=== PATIENT | male | born 1960 | race Caucasian/White ===

== ENCOUNTER 2021-06-13 08:14 | Inpatient (IN) | payer OTHER ==
[~2021-06-13] VITALS: Ht 193 cm; Wt 96.0 kg
[2021-06-13] VITALS (8 sets, daily range): BP systolic 106–131; BP diastolic 49–72
[2021-06-13] MEDS ORDERED: ACETAMINOPHEN 325 MG TAB PO SCH ×2 (09:30→14:30)
[2021-06-13 09:55] LABS: HEMATOCRIT 34.3 % (42-54); MEAN CORPUSCULAR HEMOGLOBIN 32.3 pg (27.0-33.0); MEAN CORPUSCULAR HGB CONC 33.2 g/dL (32.0-36.0); MEAN CORPUSCULAR VOLUME 97.2 fL (79-99); PLATELET COUNT (AUTO) 323 K/uL (130-400); RED BLOOD CELL COUNT(AUTO) 3.53 MIL/uL (4.50-6.20); RED CELL DISTRIBUTION WIDTH 18.6 % (11.0-15.5); WHITE BLOOD COUNT (AUTO) 12.7 K/uL (4.8-10.8)
[2021-06-13 10:04] LABS: APPEARANCE,URINE CLOUDY (CLEAR); BILIRUBIN,URINE NEGATIVE (NEGATIVE); COLOR,URINE YELLOW (YELLOW); GLUCOSE, URINE (UA) NEGATIVE (NEGATIVE); KETONES,URINE 5 mg/dL (NEGATIVE); LEUKOCYTE ESTERASE ,URINE LARGE (NEGATIVE); NITRATE,URINE POSITIVE (NEGATIVE); OCCULT BLOOD,URINE MODERATE (NEGATIVE); PH,URINE 5.5 (5.0-8.0); PROTEIN,URINE 30 mg/dL (NEGATIVE)
[2021-06-13 10:25] LABS: CREATININE 1.4 mg/dL (0.5-1.5); POTASSIUM 3.7 mmol/L (3.5-5.1)
[2021-06-13 10:29] LABS: ALBUMIN 3.9 g/dL (3.5-5.0); BILIRUBIN,TOTAL 0.9 mg/dL (0.2-1.0); TOTAL PROTEIN, SERUM 7.8 g/dL (6.0-8.3)
[2021-06-13 10:33] LABS: BACTERIA,URINE Moderate /HPF (None Seen); WBC,URINE 26-50 /HPF (0-1)
[2021-06-13 10:34] LABS: SQUAMOUS EPITHELIAL CELL,UR 0-2 /HPF (0-2)
[2021-06-13 10:51] LABS: LYMPHOCYTES % (MANUAL) 4 % (22-44); MAN.DIFF COMMENT-IMPRESSION MANUAL DIFFERENTIAL; MONOCYTES % (MANUAL) 18 % (2-9); PLATELET MORPHOLOGY COMMENT ADEQUATE; SEGMENTED NEUTROPHILS % 78 % (40-70)
[2021-06-13] MEDS ORDERED: CEFTRIAXONE 1G VIAL IVP ONE (13:30)
[2021-06-13] MEDS ORDERED: ACETAMINOPHEN 650 MG SUPPOSITORY RC PRN (15:30)
[2021-06-13] MEDS ORDERED: MORPHINE 2 MG SYG IVP PRN (15:30)
[2021-06-13] MEDS: LACTATED RINGERS 1000ML 1,000 ML IV SCH ×2 (15:30→23:30)
[2021-06-13] MEDS ORDERED: ONDANSETRON 4MG INJ IVP PRN (15:30)
[2021-06-13] MEDS: ZOSYN 3.375GM +NS 50ML IV SCH (15:30)
[2021-06-13] MEDS ORDERED: CLONIDINE HCL 0.1 MG TABLET PO PRN (15:30)
[2021-06-13] MEDS ORDERED: LACTULOSE 20 GM/30 ML UDCUP PO PRN (15:30)
[2021-06-13] MEDS ORDERED: LACTATED RINGERS 1000ML 1,000 ML IV ONE (15:30)
[2021-06-13 16:14] LABS: CREATINE KINASE, TOTAL 161 U/L (21-232); MYOGLOBIN 41 ng/mL (10-92); TROPONIN I < 0.04 ng/mL (0.00-0.06)
[2021-06-13] MEDS ORDERED: IMAT400T8 PO (18:43)
[2021-06-13] MEDS ORDERED: LISI20TA24 PO (18:43)
[2021-06-13] MEDS ORDERED: AMIO200T6 PO (18:44)
[2021-06-13] MEDS ORDERED: ATOR10 PO (18:45)
[2021-06-13] MEDS ORDERED: APIX5TAB PO (18:45)
[2021-06-13] MEDS ORDERED: TAMS-1 PO (18:45)
[2021-06-13] MEDS ORDERED: FINA5TAB41 PO (18:46)
[2021-06-13] MEDS ORDERED: VIT1CAPS47 PO (18:47)
[2021-06-13 22:34] LABS: CREATINE KINASE, TOTAL 146 U/L (21-232); MYOGLOBIN 38 ng/mL (10-92); TROPONIN I < 0.04 ng/mL (0.00-0.06)
[2021-06-13] MEDS: PHARMACY COMMUNICATION MISC SCH (23:00)
[2021-06-14] VITALS (7 sets, daily range): BP systolic 104–123; BP diastolic 53–74
[2021-06-14] MEDS: ZOSYN 3.375GM +NS 50ML IV SCH ×2 (00:15→10:06)
[2021-06-14] MEDS: PHARMACY COMMUNICATION MISC SCH ×12 (01:00→21:58)
[2021-06-14] MEDS: ACETAMINOPHEN 325 MG TAB PO PRN ×2 (01:19→21:01)
[2021-06-14] MEDS: LACTATED RINGERS 1000ML 1,000 ML IV SCH ×3 (02:50→23:12)
[2021-06-14 03:46] LABS: BASOPHILS % (AUTO) 0.6 % (0.0-5.0); EOSINOPHILS % (AUTO) 0.2 % (0.0-8.0); HEMATOCRIT 28.4 % (42-54); LYMPHOCYTES % (AUTO) 10.2 % (21.0-51.0); MEAN CORPUSCULAR HGB CONC 33.5 g/dL (32.0-36.0); MEAN CORPUSCULAR VOLUME 95.6 fL (79-99); MONOCYTES % (AUTO) 19.2 % (3.0-13.0); NEUTROPHILS % (AUTO) 69.5 % (40.0-77.0); PLATELET COUNT (AUTO) 248 K/uL (130-400); RED BLOOD CELL COUNT(AUTO) 2.97 MIL/uL (4.50-6.20); RED CELL DISTRIBUTION WIDTH 18.5 % (11.0-15.5); WHITE BLOOD COUNT (AUTO) 9.8 K/uL (4.8-10.8)
[2021-06-14 04:12] LABS: CARBON DIOXIDE 28 mmol/L (21-32); CHLORIDE 105 mmol/L (101-111); CREATINE KINASE, TOTAL 134 U/L (21-232); CREATININE 1.2 mg/dL (0.5-1.5); GLOMERULAR FILTR. RATE CALC 65 mL/min (>60); GLUCOSE,RANDOM 113 mg/dL (70-105); MYOGLOBIN 41 ng/mL (10-92); PHOSPHORUS 2.3 mg/dL (2.5-4.9); POTASSIUM 3.5 mmol/L (3.5-5.1); SODIUM SERUM 138 mmol/L (136-145); TROPONIN I < 0.04 ng/mL (0.00-0.06); UREA NITROGEN, BLOOD 11 mg/dL (7-18)
[2021-06-14 04:16] LABS: INR 1.19 (0.85-1.15); PROTHROMBIN TIME 12.8 SEC (9.6-11.6)
[2021-06-14] MEDS ORDERED: VANCOMYCIN 1G VIAL IVPB ONE (08:30)
[2021-06-14] MEDS ORDERED: VANCOMYCIN PROTOCOL PER PHARMACY IV SCH (08:30)
[2021-06-14] MEDS: IMATINIB MESYLATE 400 MG PO SCH (09:00)
[2021-06-14] MEDS ORDERED: ENOXAPARIN SODIUM 40 MG/0.4 ML SYRINGE SQ SCH (09:00)
[2021-06-14] MEDS: AMIODARONE 200 MG TABLET PO SCH (10:05)
[2021-06-14] MEDS: MULTIVITAMIN WITH MINERALS TABLET PO SCH ×2 (10:05→20:53)
[2021-06-14] MEDS: PANTOPRAZOLE 40 MG TAB DR PO SCH (10:05)
[2021-06-14] MEDS: APIXABAN 5 MG TABLET PO SCH ×2 (10:06→20:53)
[2021-06-14] MEDS ORDERED: 0.9% NACL 250ML 250 ML IV SCH (10:30)
[2021-06-14] MEDS ORDERED: VANCOMYCIN KIT 1 GM/250 ML IV.KIT IV SCH (10:30)
[2021-06-14] MEDS: MEROPENEM 500 MG VIAL IVP SCH ×2 (12:48→20:54)
[2021-06-14] MEDS: TAMSULOSIN HCL 0.4 MG CAP.ER.24H PO SCH (17:42)
[2021-06-14] MEDS: LISINOPRIL 20 MG TABLET PO SCH (17:42)
[2021-06-14] MEDS: FINASTERIDE 5 MG TABLET PO SCH (17:42)
[2021-06-14] MEDS: ATORVASTATIN 10 MG TABLET PO SCH (20:54)
[2021-06-15] MEDS: LACTATED RINGERS 1000ML 1,000 ML IV SCH ×3 (00:19→17:19)
[2021-06-15] MEDS: PHARMACY COMMUNICATION MISC SCH ×12 (01:00→22:44)
[2021-06-15 04:09] VITALS: BP 101/65
[2021-06-15] MEDS: MEROPENEM 500 MG VIAL IVP SCH ×3 (04:26→22:05)
[2021-06-15 05:01] LABS: HEMATOCRIT 28.8 % (42-54); MEAN CORPUSCULAR HEMOGLOBIN 31.4 pg (27.0-33.0); RED BLOOD CELL COUNT(AUTO) 3.03 MIL/uL (4.50-6.20); RED CELL DISTRIBUTION WIDTH 18.3 % (11.0-15.5); WHITE BLOOD COUNT (AUTO) 8.9 K/uL (4.8-10.8)
[2021-06-15 05:27] LABS: CREATININE 1.2 mg/dL (0.5-1.5); POTASSIUM 3.7 mmol/L (3.5-5.1)
[2021-06-15 07:24] VITALS: BP 114/64
[2021-06-15] MEDS: PANTOPRAZOLE 40 MG TAB DR PO SCH (08:19)
[2021-06-15] MEDS: APIXABAN 5 MG TABLET PO SCH (08:19)
[2021-06-15] MEDS: AMIODARONE 200 MG TABLET PO SCH (08:19)
[2021-06-15] MEDS: MULTIVITAMIN WITH MINERALS TABLET PO SCH ×2 (08:20→22:06)
[2021-06-15] MEDS: IMATINIB MESYLATE 400 MG PO SCH (09:00)
[2021-06-15 10:37] VITALS: BP 117/73
[2021-06-15 11:40] LABS: INR 1.11 (0.85-1.15)
[2021-06-15 11:41] LABS: PARTIAL THROMBOPLASTIN TIME 37.7 SEC (26.3-35.5)
[2021-06-15 15:49] VITALS: BP 119/73
[2021-06-15] MEDS: FINASTERIDE 5 MG TABLET PO SCH (17:17)
[2021-06-15] MEDS: TAMSULOSIN HCL 0.4 MG CAP.ER.24H PO SCH (17:17)
[2021-06-15] MEDS: LISINOPRIL 20 MG TABLET PO SCH (17:17)
[2021-06-15 20:00] VITALS: BP 140/80
[2021-06-15] MEDS: ATORVASTATIN 10 MG TABLET PO SCH (22:05)
[2021-06-15 23:45] VITALS: BP 128/75
[2021-06-16] MEDS: PHARMACY COMMUNICATION MISC SCH ×4 (01:00→07:00)
[2021-06-16 04:05] VITALS: BP 122/77
[2021-06-16] MEDS: LACTATED RINGERS 1000ML 1,000 ML IV SCH (04:38)
[2021-06-16] MEDS: MEROPENEM 500 MG VIAL IVP SCH ×2 (05:13→13:28)
[2021-06-16 05:54] LABS: HEMATOCRIT 28.9 % (42-54); MEAN CORPUSCULAR HEMOGLOBIN 31.7 pg (27.0-33.0); MEAN CORPUSCULAR HGB CONC 33.2 g/dL (32.0-36.0); MEAN CORPUSCULAR VOLUME 95.4 fL (79-99); RED BLOOD CELL COUNT(AUTO) 3.03 MIL/uL (4.50-6.20); RED CELL DISTRIBUTION WIDTH 18.2 % (11.0-15.5); WHITE BLOOD COUNT (AUTO) 7.9 K/uL (4.8-10.8)
[2021-06-16 06:08] LABS: CREATININE 1.1 mg/dL (0.5-1.5); POTASSIUM 4.1 mmol/L (3.5-5.1)
[2021-06-16 08:00] VITALS: BP 121/73
[2021-06-16] MEDS: IMATINIB MESYLATE 400 MG PO SCH (09:00)
[2021-06-16] MEDS: PANTOPRAZOLE 40 MG TAB DR PO SCH (09:11)
[2021-06-16] MEDS: AMIODARONE 200 MG TABLET PO SCH (09:11)
[2021-06-16] MEDS: MULTIVITAMIN WITH MINERALS TABLET PO SCH (09:12)
[2021-06-16 12:00] VITALS: BP 121/75
[2021-06-16 16:00] VITALS: BP 144/72
[2021-06-16 19:46] VITALS: BP 131/81
== END 2021-06-16 19:40 | disposition home or self-care (01) | DRG 872 ==
LOC: EDH 08:14 → OBSVTOIN 15:18 → EDHIP 15:18 → 3BH 20:35
PROVIDERS: ADMIT Internal Medicine; ATTEND Internal Medicine
PROC: 02HV33Z Insertion of Infusion Device into Superior Vena Cava, Percutaneous Approach (ICD-10-PCS; principal; 2021-06-13)
DX: A41.51 Sepsis due to Escherichia coli [E. coli] (principal); Z16.24 Resistance to multiple antibiotics; N39.0 Urinary tract infection, site not specified; I10 Essential (primary) hypertension; I48.91 Unspecified atrial fibrillation; E78.5 Hyperlipidemia, unspecified; Z85.028 Personal history of other malignant neoplasm of stomach; Z87.01 Personal history of pneumonia (recurrent); Z20.822 Contact with and (suspected) exposure to COVID-19; R53.81 Other malaise; T45.1X5A Adverse effect of antineoplastic and immunosuppressive drugs, initial encounter; Y92.89 Other specified places as the place of occurrence of the external cause; E78.00 Pure hypercholesterolemia, unspecified; Z79.01 Long term (current) use of anticoagulants; Z87.440 Personal history of urinary (tract) infections; Z87.891 Personal history of nicotine dependence; Z90.3 Acquired absence of stomach [part of]; Z90.81 Acquired absence of spleen; Z87.11 Personal history of peptic ulcer disease; Z92.21 Personal history of antineoplastic chemotherapy
CPT/HCPCS: 36415; 71045; 74176; 80048; 80053; 81001; 82550; 83036; 83605; 83735; 83874; 84100; 84484; 85025; 85027; 85610; 85730; 87040; 87077; 87088; 87186; 87635; C1894; C9803; G0378; J0696; J1650; J2185; J2543; J7120